=== PATIENT | female | born 1985 | race Caucasian/White ===

== ENCOUNTER → 2023-04-19 | Emergency (ER) | payer SELFPAY ==
[2023-04-19 09:07] LABS: Specific Gravity > 1.030 (1.005-1.030)
[2023-04-19 09:12] LABS: Absolute Lymphocytes (CBC) 1.4 K/uL (0.7-4.9); Basophils % 0.8 % (0-1.3); Eosinophils % 0.1 % (0-4.4); Hematocrit 35.9 % (36.0-45.0); Hemoglobin 11.9 g/dL (12.0-15.0); MCV 86.8 fL (80-100); MPV 8.8 fL (7.6-11.3); Platelets 249 thou/uL (152-406); RBC Red Blood Cell Count 4.13 M/uL (3.86-4.86)
[2023-04-19 09:22] LABS: Specific Gravity > 1.030 (1.005-1.030); Urine Bacteria 20-50 /HPF (<20); Urine Bilirubin NEGATIVE (Negative); Urine Blood Negative (Negative); Urine Clarity Extremely Turbid (Clear); Urine Color Yellow (Yellow); Urine Glucose NEGATIVE (Negative); Urine Mucus 3+ /HPF (None Seen); Urine Protein 1+ (Negative); Urine Urobilinogen Normal (Normal); Urine pH 5.5 (5.0-7.0)
[2023-04-19 09:23] LABS: Anion Gap 9.6 mEq/L (5.0-15.0); Potassium 3.6 mEq/L (3.5-5.1)
--- NOTE | 2023-04-19 10:20 | ER ---
Nurse's Notes [facility] Name: Yessi Garsia Age: 37 yrs Sex: Female : 1985 Arrival Date: 04/19/2023 Time: 07:08 Bed 6 Private MD: Diagnosis: Elevated blood-pressure reading, without diagnosis of hypertension;Emotional lability;Anemia, unspecified Presentation: 04/18 07:32 Chief complaint: Patient states: "I DON'T FEEL RIGHT. I'M WEEPING A LOT AND HAVING HOT bp FLASHES.". Coronavirus screen: At this time, the client does not indicate any symptoms associated with coronavirus-19. Ebola Screen: No symptoms or risks identified at this time. Initial Sepsis Screen: Does the patient meet any 2 criteria? No. Patient's initial sepsis screen is negative. Does the patient have a suspected source of infection? No. Patient's initial sepsis screen is negative. Risk Assessment: Do you want to hurt yourself or someone else? Patient reports no desire to harm self or others. Onset of symptoms is unknown. 07:32 Method Of Arrival: Ambulatory bp 07:32 Acuity: BLANCHE 3 bp Triage Assessment: 07:34 General: Appears in no apparent distress. Behavior is cooperative, appropriate for age, bp anxious. Pain: Denies pain. 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 - Social history:: Smoking status: Patient denies any tobacco usage or history of. Screenin:45 [facility] ED Fall Risk Assessment (Adult) History of falling in the last 3 months, kc6 including since admission No falls in past 3 months (0 pts) Confusion or Disorientation No (0 pts) Intoxicated or Sedated No (0 pts) Impaired Gait No (0 pts) Mobility Assist Device Used No (0 pt) Altered Elimination No (0 pt) Score/Fall Risk Level 0 - 2 = Low Risk. Abuse screen: Denies threats or abuse. Denies injuries from another. Nutritional screening: No deficits noted. Tuberculosis screening: No symptoms or risk factors identified. Assessment: 07:46 General: Appears in no apparent distress. comfortable, well groomed, well developed, kc6 Behavior is cooperative, anxious, crying. Pain: Denies pain. Neuro: Level of Consciousness is awake, alert, obeys commands, Oriented to person, place, time, situation, Appropriate for age. Cardiovascular: Capillary refill < 3 seconds. Respiratory: Airway is patent Trachea midline Respiratory effort is even, unlabored, Respiratory pattern is regular, symmetrical. GI: No signs and/or symptoms were reported involving the gastrointestinal system. : No signs and/or symptoms were reported regarding the genitourinary system. Denies vaginal bleeding. EENT: No signs and/or symptoms were reported regarding the EENT system. Derm: No signs and/or symptoms reported regarding the dermatologic system. Skin is intact, is healthy with good turgor, Skin is pink, warm \\T\\ dry. Musculoskeletal: No signs and/or symptoms reported regarding the musculoskeletal system. Circulation, motion, and sensation intact. Capillary refill < 3 seconds, Range of motion: intact in all extremities. 08:46 Reassessment: Patient appears in no apparent distress at this time. No changes from kc6 previously documented assessment. Patient and/or family updated on plan of care and expected duration. Pain level reassessed. Patient is alert, oriented x 3, equal unlabored respirations, skin warm/dry/pink. 09:48 Reassessment: Patient appears in no apparent distress at this time. No changes from ko1 previously documented assessment. Patient and/or family updated on plan of care and expected duration. Pain level reassessed. Patient is alert, oriented x 3, equal unlabored respirations, skin warm/dry/pink. Vital Signs: 07:32 BP 135 / 78; Pulse 75; Resp 16; Temp 97.2; Pulse Ox 100% ; Weight 54.43 kg; Height 5 bp ft. 4 in. ; 08:01 BP 133 / 93; Pulse 72; Resp 15; Pulse Ox 99% ; ko1 09:21 Pulse 68; Resp 16 S; Pulse Ox 100% on R/A; kc6 10:27 BP 126 / 88; Pulse 64; Resp 18; Temp 98.3; Pulse Ox 100% on R/A; ko1 07:32 Body Mass Index 20.60 (54.43 kg, 162.56 cm) bp ED Course: 07:11 Patient arrived in ED. mg5 07:11 Anna, Lorenzo, DO is Attending Physician. ms3 07:34 Triage completed. bp 07:34 Arm band placed on. bp 07:36 Marysol Lewis RN is Primary Nurse. kc6 07:45 Patient has correct armband on for positive identification. Bed in low position. Call kc6 light in reach. Side rails up X 1. Client placed on continuous cardiac and pulse oximetry monitoring. NIBP monitoring applied. 07:45 Patient maintains SpO2 saturation greater than 95% on room air. kc6 08:30 Inserted saline lock: 20 gauge in right antecubital area, using aseptic technique. ko1 Blood collected. 08:30 Initial lab(s) drawn, by ED staff, sent to lab. Urine collected: clean catch specimen, ko1 clear. 08:31 BMP Sent. ko1 08:31 CBC with Diff Sent. ko1 08:41 Urinalysis w/ reflexes Sent. ko1 08:41 Test, Urine Sent. ko1 09:48 Provided Education on: na. ko1 09:48 No provider procedures requiring assistance completed. ko1 10:19 Ole Cobian DO is Referral Physician. ms3 10:19 Kuldeep Lyon MD is Referral Physician. ms3 10:27 IV discontinued, intact, bleeding controlled, No redness/swelling at site. Pressure ko1 dressing applied. Administered Medications: No medications were administered Medication: 09:48 VIS not applicable for this client. ko1 Outcome: 10:19 Discharge ordered by . ms3 10:27 Discharged to home ambulatory, ko1 10:27 Condition: stable 10:27 Discharge instructions given to patient, Instructed on discharge instructions, follow up and referral plans. Demonstrated understanding of instructions, follow-up care, 10:28 Patient left the ED. ko1 Signatures: Drew Modi RN RN bp Lorenzo Anna DO DO ms3 Marysol Lewis, RN RN Kasia Daigle RN RN ko1 Stefany Reddy mg5
--- NOTE | 2023-04-19 10:20 | EDPHYS ---
Physician Documentation [facility] Name: Yessi Garsia Age: 37 yrs Sex: Female : 1985 Arrival Date: 04/19/2023 Time: 07:08 Bed 6 Private MD: ED Physician Lorenzo Anna HPI: 04/18 10:19 This 37 yrs old Female presents to ER via Ambulatory with complaints of Menopause?. ms3 10:19 37-year-old female with past medical history of borderline personality disorder, ms3 bipolar presents to the emergency department for hot flashes and emotional lability. Patient denies pain. Patient denies any alleviating or inciting factors. 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 - Social history:: Smoking status: Patient denies any tobacco usage or history of. ROS: 10:19 Constitutional: Negative for fever, and chills. Cardiovascular: Negative for chest ms3 pain, and palpitations. Respiratory: Negative for shortness of breath, cough, wheezing, and pleuritic chest pain, Abdomen/GI: Negative for abdominal pain, nausea, vomiting, diarrhea, and constipation, MS/Extremity: Negative for injury and deformity, Skin: Negative for injury, rash, and discoloration, 10:19 Psych: Positive for Emotional lability, Exam: 10:19 Constitutional: This is a well developed, well nourished patient who is awake, alert, ms3 and in no acute distress. Head/Face: Normocephalic, atraumatic. Neck: Trachea midline, no cervical lymphadenopathy. Supple, full range of motion without nuchal rigidity, or vertebral point tenderness. No Meningismus. Chest/axilla: Normal chest wall appearance and motion. Nontender with no deformity. Cardiovascular: Regular rate and rhythm with a normal S1 and S2. No gallops, murmurs, or rubs. Normal PMI, no JVD. No pulse deficits. Respiratory: Lungs have equal breath sounds bilaterally, clear to auscultation and percussion. No rales, rhonchi or wheezes noted. No increased work of breathing, no retractions or nasal flaring. Abdomen/GI: Soft, non-tender, with normal bowel sounds. No distension or tympany. No guarding or rebound. No evidence of tenderness throughout. Skin: Warm, dry with normal turgor. Normal color with no rashes, no lesions, and no evidence of cellulitis. MS/ Extremity: Pulses equal, no cyanosis. Neurovascular intact. Full, normal range of motion. 10:19 Psych: Behavior/mood is pleasant, cooperative, Affect is calm, Oriented to person, place, time, Patient has no thoughts/intents to harm self or others. Judgement / Insight is normal. Memory is normal. Delusions/hallucinations are not present. Patient tearful during exam. Vital Signs: 07:32 BP 135 / 78; Pulse 75; Resp 16; Temp 97.2; Pulse Ox 100% ; Weight 54.43 kg; Height 5 bp ft. 4 in. ; 08:01 BP 133 / 93; Pulse 72; Resp 15; Pulse Ox 99% ; ko1 09:21 Pulse 68; Resp 16 S; Pulse Ox 100% on R/A; kc6 10:27 BP 126 / 88; Pulse 64; Resp 18; Temp 98.3; Pulse Ox 100% on R/A; ko1 07:32 Body Mass Index 20.60 (54.43 kg, 162.56 cm) bp MDM: 08:10 Patient medically screened. ms3 10:19 Data reviewed: vital signs, nurses notes, lab test result(s), and as a result, I will ms3 discharge patient. Counseling: I had a detailed discussion with the patient and/or guardian regarding the historical points, exam findings, and any diagnostic results supporting the discharge/admit diagnosis, lab results, the need for outpatient follow up, to return to the emergency department if symptoms worsen or persist or if there are any questions or concerns that arise at home. Special discussion: I discussed with the patient/guardian in detail that at this point there is no indication for admission to the hospital. It is understood, however, that if the symptoms persist or worsen the patient needs to return immediately for re-evaluation. ED course: Discussed labs with patient. Patient to follow-up with primary care physician in 2 to 3 days. Patient understands and agrees with plan. All questions were answered. Return precautions discussed include worsening symptoms, or any other concern. 03/06 07:48 Order name: CBC with Diff; Complete Time: 09:40 ms3 04/18 07:48 Order name: BMP; Complete Time: 09:40 ms3 04/18 07:48 Order name: Urinalysis w/ reflexes; Complete Time: 09:40 ms3 04/18 07:48 Order name: Test, Urine; Complete Time: 09:40 ms3 04/18 08:50 Order name: Labs - recollect needed: recollect all tubes; Complete Time: 08:59 bd Administered Medications: No medications were administered Disposition Summary: 04/19/23 10:19 Discharge Ordered Notes: Location: Home ms3 Condition: Stable ms3 Diagnosis - Elevated blood-pressure reading, without diagnosis of hypertension ms3 - Emotional lability ms3 - Anemia, unspecified ms3 Followup: ms3 - With: Ole Cobian DO - When: 2 - 3 days - Reason: Recheck today's complaints Followup: ms3 - With: Kuldeep Lyon MD - When: 2 - 3 days - Reason: Recheck today's complaints Discharge Instructions: - Anemia ms3 - DASH Eating Plan ms3 - Discharge Summary Sheet kc6 Forms: - Medication Reconciliation Form ms3 - Thank You Letter ms3 - Antibiotic Education ms3 - Prescription Opioid Use ms3 - Patient Portal Instructions ms3 - Leadership Thank You Letter ms3 - Work release form kc6 Signatures: Dispatcher [employer] Karen Badillo Brian RN RN Lorenzo Gentile DO DO ms3
[2023-04-19 10:51] VITALS: BP 126/88; TEMP 98.3; O2SAT 100
== END ==
LOC: ER 07:08
DX: R03.0 Elevated blood-pressure reading, without diagnosis of hypertension (principal); R45.86 Emotional lability; D64.9 Anemia, unspecified; Z91.048 Other nonmedicinal substance allergy status
CPT/HCPCS: 36415; 80048; 81001; 81025; 85025; 99284